=== PATIENT | female | born 1985 | race Caucasian/White ===

== ENCOUNTER → 2020-10-21 | Outpatient (CLI) | payer OTHER ==
[~2020-10-21] MED LIST: COVID-19 VACC, MRNA(MODERNA)/PF 100 MCG/0.5 ML VIAL IM ONE
== END ==
LOC: VACCPMC 16:00
DX: Z23 Encounter for immunization (principal); Z20.822 Contact with and (suspected) exposure to COVID-19

== ENCOUNTER → 2020-11-20 | Outpatient (CLI) | payer OTHER | END | DRG 951 | LOC: VACCPMC 08:18 | DX: Z23 Encounter for immunization (principal); Z20.822 Contact with and (suspected) exposure to COVID-19 | CPT/HCPCS: 0012A; 91301 ==

== ENCOUNTER → 2021-06-03 | Emergency (ER) | payer SELFPAY ==
[~2021-06-03] VITALS: Ht 162.6 cm; Wt 113.4 kg
== END | disposition home or self-care (01) ==
LOC: ER 20:03
DX: R50.9 Fever, unspecified (principal); R06.00 Dyspnea, unspecified; R05 Cough; U07.1 COVID-19
CPT/HCPCS: 99282; U0002

== ENCOUNTER → 2021-10-15 | Outpatient (CLI) | payer SELFPAY | LOC: VACCPMC 08:00 | DX: Z23 Encounter for immunization (principal); Z20.822 Contact with and (suspected) exposure to COVID-19 | CPT/HCPCS: 91301 ==